=== PATIENT | female | born 1985 | race African-American/Black ===

== ENCOUNTER 2017-07-02 08:44 | Emergency (ER) | payer BC ==
[~2017-07-02] VITALS: Ht 157.5 cm; Wt 92.0 kg
[~2017-07-02 08:44] MED LIST: FERR256T PO; IBUP-779 PO; MULT-1146 PO
[2017-07-02 10:45] VITALS: BP 144/84
[2017-07-02] MEDS ORDERED: HYDROCODONE/ACETAMINOPHEN 5/325MG TABLET PO ONE (10:45)
== END 2017-07-02 11:45 | disposition home or self-care (01) ==
LOC: ER 11:37
DX: M25.571 Pain in right ankle and joints of right foot (principal); R03.0 Elevated blood-pressure reading, without diagnosis of hypertension; F17.210 Nicotine dependence, cigarettes, uncomplicated; Z79.899 Other long term (current) drug therapy
CPT/HCPCS: 73610; 73630; 99284

== ENCOUNTER 2020-01-23 15:04 | Emergency (ER) | payer BC ==
[~2020-01-23] VITALS: Ht 154.9 cm; Wt 81.0 kg
[2020-01-23] MEDS ORDERED: ACETAMINOPHEN 325MG TABLET PO STA (16:30)
[2020-01-23 16:57] LABS: CLARITY URINE CLEAR (CLEAR); COLOR URINE YELLOW (YELLOW); KETONES URINE NEGATIVE (NEGATIVE); LEUKOCYTE ESTERASE URINE NEGATIVE (NEGATIVE); NITRITE URINE NEGATIVE (NEGATIVE); OCCULT BLOOD URINE 3+ (NEGATIVE); PH URINE 7.5 (4.5-8.0); PROTEIN URINE NEGATIVE (NEGATIVE); SPECIFIC GRAVITY URINE 1.015 (1.005-1.030)
[2020-01-23 18:59] LABS: CHLORIDE 102 mEq/L (98-107)
[2020-01-23 19:07] LABS: BASOPHILS % 0.5 % (0.0-2.0); EOSINOPHILS % 0.1 % (0.0-5.0); HEMATOCRIT. 40.3 % (36.0-48.0); HEMOGLOBIN. 13.9 g/dL (12.0-16.0); LYMPHOCYTES % 36.4 % (20.0-50.0); MEAN CORPUSCULAR HEMOGLOBIN 30.1 pg (28.0-32.0); MEAN CORPUSCULAR VOLUME 87.1 fL (81.0-99.0); MEAN PLATELET VOLUME 8.7 fl (7.4-10.4); MONOCYTES % 7.2 % (2.0-8.0); NEUTROPHILS % 55.8 % (40.0-76.0); PLATELET 247 x1000/uL (130-400); RED BLOOD CELL COUNT 4.62 mill/uL (4.2-5.4); RED CELL DISTRIBUTION WIDTH 13.1 % (11.6-14.6)
[2020-01-23 19:11] LABS: B-HCG QUANTITATIVE < 1 mIU/mL (<3)
[2020-01-23] MEDS ORDERED: POTASSIUM CHLORIDE 20MEQ TABLET SR PO ONE (19:30)
[2020-01-23 19:41] VITALS: BP 140/70
== END 2020-01-23 19:54 | disposition home or self-care (01) ==
LOC: ER 15:04
DX: R10.9 Unspecified abdominal pain (principal); N93.8 Other specified abnormal uterine and vaginal bleeding; Z98.890 Other specified postprocedural states; Z79.899 Other long term (current) drug therapy
CPT/HCPCS: 36415; 76830; 76856; 80053; 81003; 81025; 84702; 85025; 86850; 86900; 99284